=== PATIENT | female | born 1970 ===

== ENCOUNTER 2019-04-18 08:04 | Emergency (ER) | payer MEDICAID ==
--- NOTE | 2019-04-18 08:25 | Emergency Department Record ---
History of Present Illness - General Chief complaint: Edema Stated complaint: LEG SWELLING X 1 WEEK Time Seen by Provider: 04/18/19 08:13 Source: Patient Mode of Arrival: Ambulatory Limitations: No limitations - History of Present Illness Initial comments: The patient is here due to developing the perception of swelling to her arms and legs over the past week. She denies any new pain, fever, chills, SOB, nausea, vomiting, diarrhea, or any recent illnesses. The patient also denies any new medicines or new allergies. The patient does have a long hx of kidney stones and recurrent infections. She just finished a course of Macrobid and prior to that Keflex. She does have a mild feeling of dysuria but the patient states that has been coming and going for at least a year. There is a mild discomfort to both flanks but that is not an unusual issue for her and she does have a Urology appointment in 7 days. MD Complaint: Extremity swelling Onset/Timin -: Week(s) - Related Data Home Medications Medication Instructions Recorded Confirmed Last Taken Allopurinol 100 mg PO DAILY PRN 04/18/19 04/18/19 Unknown Tamsulosin HCl [Flomax] 0.4 mg PO DAILY PRN 04/18/19 04/18/19 Unknown Trazodone HCl 50 mg PO QHS 04/18/19 04/18/19 04/17/19 Previous Rx's Medication Instructions Recorded Sulfamethoxazole/Trimethoprim 1 tab PO BID #14 tab 04/18/19 [Bactrim Ds] Allergies Allergy/AdvReac Type Severity Reaction Status Date / Time codeine Allergy PT UNSURE Verified 04/18/19 08:18 OF REACTION Opioids - Morphine Analogues AdvReac HYPERSENSIT Verified 04/18/19 08:18 IVITY Travel Screening - Travel/Exposure Within Last 30 Days Have you traveled within the last 30 days?: No - Travel/Exposure Within Last Year Have you traveled outside the [place] in the last year?: No - Additonal Travel Details Have you been exposed to anyone with a communicable illness?: No Review of Systems Constitutional: Denies: Chills, Fever Eyes: Denies: Eye discharge ENT: Denies: Congestion Respiratory: Denies: Cough, Dyspnea Past Medical History - SOCIAL HISTORY Smoking Status: Never smoker Alcohol Use: Rare Drug Use: None - RESPIRATORY Hx Respiratory Disorders: No - CARDIOVASCULAR Hx Cardio Disorders: Yes Hx Hypotension: Yes Comment:: mitral valve prolaspe. - NEURO Hx Neuro Disorders: Yes Hx Dizziness: Yes - GI Hx GI Disorders: No - Hx Genitourinary Disorders: Yes Hx Kidney Stones: Yes - ENDOCRINE Hx Endocrine Disorders: No - MUSCULOSKELETAL Hx Musculoskeletal Disorders: Yes Hx Arthritis: Yes Comment:: scoliosois - PSYCH Hx Psych Problems: No - HEMATOLOGY/ONCOLOGY Hx Hematology/Oncology Disorders: No Family Medical History Any Significant Family History?: No Physical Exam - General General Appearance: Alert, Oriented x3, Cooperative, No acute distress (The patient appears very comfortable at this time and clearly in no obvious pain.) - Head Head exam: Atraumatic, Normocephalic, Normal inspection - Eye Eye exam: Normal appearance, PERRL - ENT Throat exam: Normal inspection. negative: Tonsillar erythema, Tonsillar exudate - Neck Neck exam: Normal inspection, Full ROM. negative: Lymphadenopathy, Tenderness - Respiratory Respiratory exam: Normal lung sounds bilaterally. negative: Respiratory distress - Cardiovascular Cardiovascular Exam: Regular rate, Normal rhythm, Normal heart sounds - GI/Abdominal GI/Abdominal exam: Soft, Normal bowel sounds. negative: Tenderness - Extremities Extremities exam: Normal inspection, Full ROM, Normal capillary refill, Other (The upper and lower extremities appear normal with no swelling or edema apprec iated.). negative: Calf tenderness, Joint swelling, Pedal edema, Tenderness - Neurological Neurological exam: Alert, Normal gait. negative: Abnormal gait, Motor sensory deficit - Psychiatric Psychiatric exam: negative: Anxious - Skin Skin exam: negative: Rash Course Vital Signs 04/18/19 08:14 Temperature 97.7 F Pulse Rate [ 68 Pulse Ox Probe] Respiratory 16 Rate Blood Pressure 128/66 [Left Arm] Pulse Ox 98 - Reevaluation(s) Reevaluation #1: The patient is resting comfortably and clearly is nontoxic in appearance. I did discuss the recurrent UTI with her and the need to keep the appointment with her Urologist. As for the perceived edema I did explain to the patient that I did not find any abnormality that could cause that. She is to see her PCP next week for recheck and further testing. 04/18/19 09:57 Medical Decision Making - Data Complexity MDM Data: Labs Ordered and/or Reviewed, X-Ray Ordered and/or Reviewed - Lab Data Result diagrams: 04/18/19 08:25 04/18/19 08:25 - Radiology Data Radiology results: Report reviewed (CT: Bilateral nephrocalcinosis and stones, Neg for ureter stone or hydro or obstruction.) Disposition Disposition: Discharge Clinical Impression: UTI (urinary tract infection) Qualifiers: Urinary tract infection type: site unspecified Hematuria presence: with hematuria Qualified Code(s): N39.0 - Urinary tract infection, site not specified Disposition: Home, Self-Care Condition: (2) Stable Instructions: Urinary Tract Infection in Women (ED) Additional Instructions: Please stay away from salt in your diet and take the Bactrim as directed. Please see your family doctor next week and also keep the appointment with your Urologist. Return to the ER for any worsening issues. Prescriptions: Sulfamethoxazole/Trimethoprim [Bactrim Ds] 1 tab PO BID #14 tab Forms: Patient Portal Access Time of Disposition: 09:56 Quality - Quality Measures Quality Measures: N/A - Blood Pressure Screening View Details: Yes Does Patient Have Any of the Following: No Blood Pressure Classification: Pre-Hypertensive BP Reading Systolic Measurement: 128 Diastolic Measurement: 66 Screening for High Blood Pressure: < Pre-Hypertensive BP, F/U Documented > [G8950] Pre-Hypertensive Follow-up Interventions: Referral to alternative/primary care provider.
[2019-04-18 08:45] LABS: ABSOLUTE NEUTROPHIL COUNT 4.47; BASO % 0.1 % (0-6); EOS % 4.2 % (0-6); GRAN % 62.6 % (47-80); HEMATOCRIT 39.8 % (35.0-47.0); HEMOGLOBIN 13.1 gm/dl (11.6-16.0); LYMPH % 23.7 % (16-45); MEAN CELL VOLUME 91.5 fl (81-97); MEAN CORPUSCULAR HEMOGLOBIN 30.1 pg (27-33); MEAN CORPUSCULAR HGB CONC 32.9 g/dl (32-36); MEAN PLATELET VOLUME 10.1 fl (7.4-10.4); MONO % 9.4 % (0-9); PLATELET COUNT 219 K/uL (130-400); RED BLOOD COUNT 4.35 M/uL (3.80-5.40); RED CELL DISTRIBUTION WIDTH 13.2 % (11.5-14.5); WHITE BLOOD COUNT W/O DIFF 7.1 K/uL (4.2-12.2)
[2019-04-18 08:55] LABS: BLOOD UREA NITROGEN 13 mg/dL (6-20); URINE APPEARANCE SL CLOUDY; URINE BILIRUBIN NEGATIVE (NEGATIVE); URINE COLOR YELLOW; URINE GLUCOSE (UA) NEGATIVE (NEGATIVE); URINE KETONE NEGATIVE (NEGATIVE)
[2019-04-18 08:56] LABS: CREATININE 0.9 mg/dL (0.5-0.9); EST GLOMERULAR FILTRATION RATE > 60 mL/min; URINE BLOOD MODERATE-NONHEMOLYZE (NEGATIVE); URINE LEUKOCYTE ESTERASE MODERATE (NEGATIVE); URINE NITRITE POSITIVE (NEGATIVE); URINE PROTEIN TRACE (NEGATIVE); URINE UROBILINOGEN 0.2 E.U./dL (0.20 - 1.00)
[2019-04-18 08:58] LABS: GLUCOSE,RANDOM 100 mg/dL (74-109)
[2019-04-18 08:59] LABS: URINE EPITHELIAL CELLS 0 - 2 (FEW)
[2019-04-18 09:00] LABS: URINE BACTERIA 4+
[2019-04-18 09:01] LABS: ALB/GLOB RATIO 1.3 (1.1-1.8); ALKALINE PHOSPHATASE 72 U/L (35-104); ALT/SGPT 19 U/L (<33); AST/SGOT 17 U/L (10.0-35.0); C-REACTIVE PROTEIN 0.46 mg/dL (<0.5)
[2019-04-18 09:12] LABS: THYROID STIMULATING HORMONE 4.06 uIU/mL (0.270-4.20)
[2019-04-18] MEDS ORDERED: ACETAMINOPHEN 325 MG TAB PO ONE (09:46)
--- NOTE | 2019-04-18 09:49 | CT SCAN REPORT ---
EXAMINATION: CT Abdomen and Pelvis without IV Contrast EXAM DATE: 04/18/2019 9:43 AM TECHNIQUE: Standard protocol CT imaging of the abdomen and pelvis was performed without intravenous c ontrast. INDICATION: flank pain COMPARISON: None ENCOUNTER: Not applicable CT ABDOMEN AND PELVIS FINDINGS: Lung Bases: Included extent of the lung bases are clear. Hepatobiliary: A 4.5 cm hypoattenuating mass is present within the posterior right lobe of the liver, indeterminate. Status post cholecystectomy. Pancreas: The pancreas is normal. Spleen: The spleen is not enlarged. Adrenals: The adrenal glands are normal. Kidneys, Ureters, & Bladder: Innumerable nonobstructing renal calculi are present bilaterally and the re is severe medullary nephrocalcinosis bilaterally. No obstructing urinary tract calculi are identif ied and there is no hydronephrosis. The urinary bladder is unremarkable. Gastrointestinal: The stomach and small bowel are normal with no obstruction or inflammation. The emeterio endix is normal. The large bowel is within normal limits. Reproductive Organs: An IUD is in place. Lymphatic System: There is no adenopathy within the abdomen or pelvis. Vasculature: Normal caliber abdominal aorta Peritoneum: No free fluid, free air, or inflammation Abdominal wall & Musculoskeletal: No suspicious bone lesions. Assessment of the solid organs, soft tissues, and vascular structures is overall limited on noncontra st imaging, IMPRESSION: 1. No obstructing urinary tract calculi or hydronephrosis. 2. 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 3. Status post cholecystectomy. Dictated by: Tomy Nguyen MD on 04/18/2019 9:46 AM. .
== END 2019-04-18 10:07 | disposition home or self-care (01) ==
LOC: ER 08:04
DX: N39.0 Urinary tract infection, site not specified (principal); R10.9 Unspecified abdominal pain; Z87.442 Personal history of urinary calculi
CPT/HCPCS: 74176; 80053; 81001; 84443; 84703; 85025; 85651; 86140; 99284

== ENCOUNTER 2019-05-15 08:27 | Emergency (ER) | payer MEDICAID ==
--- NOTE | 2019-05-15 08:42 | Emergency Department Record ---
History of Present Illness - General Chief complaint: Flank Pain Stated complaint: L FLANK PAIN/FEVER/CHILS Time Seen by Provider: 05/15/19 08:30 Source: Patient Mode of Arrival: Ambulatory Limitations: No limitations - History of Present Illness Initial comments: 48 yo female presents not feeling well since Sunday. She states she developed fevers and chills. The fevers have been subjective without any measurements. The symptoms seem to come and go. She has had some left flank pain with this as well. She was diagnosed with a UTI one month ago. She was seen in the ED. CT at that time demonstrated bilateral renal medullary nephrocalcinosis and innumerable nonobstructing renal calculi, no obstructing urinary tract calculi or hydronephrosis. SP cholecystectomy. No vomiting or diarrhea. She has nausea and feels dehydrated. She does not recall the name of her urologist for [facility] but she has seen Dr Rivers for general urology. She states she was told at a follow up at the end of March she is to have a hysterectomy due to so many UTIs in the past. Her PC is Dr Delacruz in [place]. Urine culture demonstrated E. coli from 04-18-2019. She report she has had 9 children. This is thought to be the cause of her bladder disfunction and UTIs. She became aware that she had renal stones in 2001. Her last lithotripsy was in 2010. No obstructing stones since then. The patient was treated with Bactrim DS on 04/18/2019. The E. coli was sensitive on the culture. Complaint: Other (left flank pain) -: Days(s) Location: Other (left side) Radiation: L flank Severity: Moderate Quality: Aching, Stabbing Consistency: Intermittent Improves with: None Worsens with: None Patient : No Associated Symptoms: Abdominal pain, Fever/chills, Loss of appetite - Related Data Allergies Allergy/AdvReac Type Severity Reaction Status Date / Time codeine Allergy PT UNSURE Verified 04/18/19 08:18 OF REACTION Opioids - Morphine Analogues AdvReac HYPERSENSIT Verified 04/18/19 08:18 IVITY Review of Systems Constitutional: Reports: Chills, Fever, Malaise, Weakness Eyes: Denies: Eye discharge ENT: Denies: Congestion, Throat pain Respiratory: Denies: Cough, Dyspnea Cardiovascular: Denies: Chest pain, Palpitations, Syncope Endocrine: Reports: Fatigue. Denies: Polydipsia, Polyuria Gastrointestinal: Reports: Abdominal pain, Nausea. Denies: Constipation, Diarrhea, Hematemesis, Hematochezia, Melena, Vomiting Genitourinary: Reports: Dysuria, Frequency. Denies: Hematuria, Incontinence, Retention, Urgency Musculoskeletal: Reports: Arthralgia, Back pain, Myalgia. Denies: Neck pain Skin: Denies: Bruising, Change in color, Rash Neurological: Denies: Headache, Numbness, Weakness Psychiatric: Denies: Anxiety Hematological/Lymphatic: Denies: Easy bleeding, Easy bruising Past Medical History - SOCIAL HISTORY Smoking Status: Never smoker Drug Use: None - RESPIRATORY Hx Respiratory Disorders: No - CARDIOVASCULAR Hx Cardio Disorders: Yes Hx Hypotension: Yes Comment:: mitral valve prolaspe. - NEURO Hx Neuro Disorders: Yes Hx Dizziness: Yes - GI Hx GI Disorders: No - Hx Genitourinary Disorders: Yes Hx Kidney Stones: Yes - ENDOCRINE Hx Endocrine Disorders: No - MUSCULOSKELETAL Hx Musculoskeletal Disorders: Yes Hx Arthritis: Yes Comment:: scoliosois - PSYCH Hx Psych Problems: No - HEMATOLOGY/ONCOLOGY Hx Hematology/Oncology Disorders: No Physical Exam - General General Appearance: Alert, Oriented x3, Cooperative, No acute distress Limitations: No limitations - Head Head exam: Atraumatic - Eye Eye exam: Normal appearance, PERRL. negative: Conjunctival injection, Scleral icterus - ENT ENT exam: Normal exam, Mucous membranes moist Ear exam: Normal external inspection Nasal Exam: Normal inspection Mouth exam: Normal external inspection Teeth exam: Normal inspection Throat exam: Normal inspection - Neck Neck exam: Normal inspection - Respiratory Respiratory exam: Normal lung sounds bilaterally. negative: Respiratory distress, Rhonchi, Stridor, Wheezes - Cardiovascular Cardiovascular Exam: Normal rhythm, Normal heart sounds, Tachycardia. negative: Regular rate - GI/Abdominal GI/Abdominal exam: Soft, Normal bowel sounds. negative: Distended, Guarding, Rebound, Rigid, Tenderness - Rectal Rectal exam: Deferred - exam: Deferred - Extremities Extremities exam: Normal inspection. negative: Calf tenderness, Pedal edema, Tenderness - Back Back exam: Reports: CVA tenderness (L), Full ROM, Paraspinal tenderness. Denies: CVA tenderness (R), Muscle spasm, Vertebral tenderness - Neurological Neurological exam: Alert, Oriented X3 - Psychiatric Psychiatric exam: Normal affect, Normal mood. negative: Agitated, Anxious - Skin Skin exam: Dry, Intact, Normal color, Warm Course - Reevaluation(s) Reevaluation #1: 05/15/19 08:49 US ordered given multiple prior CT scans US on 11-29-2018 Reviewed from [facility]: Medullary nephrocalcinosis. Minimal R hydronephrosis. 05/15/19 09:24 The labs were reviewed The WBC count is 16 The UA is consistent with UTI The HCG is negative The BMP is unremarkable Rocephin 1mg IV ordered 05/15/19 09:47 Influenza are negative 05/15/19 10:51 The US was reviewed. She has the nephrocacinosis with interval development of mild left sided hydronephrosis. Given her history of recurrent infections, stones, hydronephrosis I discussed she needs to be admitted. I called [facility] One [facility] for transfer. 05/15/19 11:07 Dr Schaefer of [facility] accepts the patient for transfer 05/15/19 11:25 [facility] office was called and a message was left for Dr Rivers informing her of transfer, bed # at [facility]. Medical Decision Making - Lab Data Result diagrams: 05/15/19 08:56 05/15/19 08:56 Disposition Disposition: Transfer Clinical Impression: Pyelonephritis UTI (urinary tract infection) Qualifiers: Urinary tract infection type: site unspecified Hematuria presence: without hematuria Qualified Code(s): N39.0 - Urinary tract infection, site not specified Hydronephrosis Qualifiers: Hydronephrosis type: unspecified Qualified Code(s): N13.30 - Unspecified hydronephrosis Disposition: Still a Patient at [facility] Decision to Admit Date: 05/15/19 Transfer To: [facility] Reason For Transfer: Pyelonephritis with renal stones Accepting Physician: Olive Time Discussed w/Accepting Physician: 10:50 Condition: (2) Stable Forms: Patient Portal Access Time of Disposition: 10:51 Quality - Quality Measures Quality Measures: N/A - Blood Pressure Screening Does Patient Have Any of the Following: No Blood Pressure Classification: Normal BP Reading Systolic Measurement: 96 Diastolic Measurement: 59 Screening for High Blood Pressure: < Normal BP, F/U Not Required > [G8783]
[2019-05-15] MEDS ORDERED: ONDANSETRON HCL IV 4 MG/2 ML VIAL IVP ONE (08:47)
[2019-05-15] MEDS ORDERED: ACETAMINOPHEN 1,000 MG/100 ML BTL IVPB ONE (08:47)
[2019-05-15] MEDS ORDERED: 0.9 % SODIUM CHLORIDE 1,000 ML BAG IV ONE ×2 (08:47→10:33)
[2019-05-15 09:05] LABS: ABSOLUTE NEUTROPHIL COUNT 14.18; HEMATOCRIT 40.9 % (35.0-47.0); HEMOGLOBIN 13.4 gm/dl (11.6-16.0); MEAN CELL VOLUME 90.9 fl (81-97); MEAN CORPUSCULAR HEMOGLOBIN 29.8 pg (27-33); MEAN CORPUSCULAR HGB CONC 32.8 g/dl (32-36); MEAN PLATELET VOLUME 9.9 fl (7.4-10.4); PLATELET COUNT 203 K/uL (130-400); RED CELL DISTRIBUTION WIDTH 13.1 % (11.5-14.5); WHITE BLOOD COUNT W/O DIFF 16.7 K/uL (4.2-12.2)
[2019-05-15 09:06] LABS: URINE APPEARANCE SL CLOUDY; URINE BILIRUBIN NEGATIVE (NEGATIVE); URINE BLOOD SMALL (NEGATIVE); URINE COLOR YELLOW; URINE GLUCOSE (UA) NEGATIVE (NEGATIVE); URINE KETONE NEGATIVE (NEGATIVE); URINE LEUKOCYTE ESTERASE MODERATE (NEGATIVE); URINE NITRITE POSITIVE (NEGATIVE); URINE PROTEIN NEGATIVE (NEGATIVE); URINE UROBILINOGEN 0.2 E.U./dL (0.20 - 1.00)
[2019-05-15 09:14] LABS: HCG,QUALITATIVE URINE NEGATIVE (NEGATIVE); URINE BACTERIA 4+; URINE EPITHELIAL CELLS RARE (FEW); URINE WBC 36 - 50 (0-2/hpf)
[2019-05-15 09:17] LABS: PLATELET ESTIMATE NORMAL (NORMAL)
[2019-05-15] MEDS ORDERED: CEFTRIAXONE 1GM/50ML BAG 1 GM/50 ML BAG IVPB ONE (09:17)
[2019-05-15 09:19] LABS: BLOOD UREA NITROGEN 10 mg/dL (6-20); CREATININE 0.8 mg/dL (0.5-0.9); EST GLOMERULAR FILTRATION RATE > 60 mL/min
[2019-05-15 09:20] LABS: TOTAL PROTEIN 7.7 g/dL (6.6-8.7)
[2019-05-15 09:21] LABS: INFLUENZA A NEGATIVE (NEGATIVE); INFLUENZA B NEGATIVE (NEGATIVE)
[2019-05-15 09:22] LABS: GLUCOSE,RANDOM 113 mg/dL (74-109)
[2019-05-15 09:25] LABS: ALB/GLOB RATIO 1.1 (1.1-1.8); ALKALINE PHOSPHATASE 74 U/L (35-104); ALT/SGPT 21 U/L (<33); AST/SGOT 20 U/L (10.0-35.0)
[2019-05-15] MEDS ORDERED: IBUPROFEN 600 MG TABLET PO ONE (09:49)
--- NOTE | 2019-05-15 10:40 | ULTRASOUND REPORT ---
EXAMINATION: RENAL EXAM DATE: 05/15/2019 10:10 AM TECHNIQUE: Sonographic images of the kidneys and bladder were obtained. INDICATION: Left flank pain COMPARISON: CT abdomen and pelvis without contrast from 04/18/2019 ENCOUNTER: Initial Findings: The right kidney measures 10 x 5 x 4 cm, and the left kidney measures 13 x 6 x 5 cm, both w ithin normal limits for size. The renal pyramids are echogenic, consistent with the diffuse pyramidal calcifications seen in both kidneys on the prior CT. There is mild left hydronephrosis, which is not evident previously. The urinary bladder is poorly distended, but unremarkable morphologically. Ureteral jets are not seen however. IMPRESSION: 1. Findings are consistent with medullary nephrocalcinosis, as seen previously, with interval mild le ft hydronephrosis, suspicious for obstructive uropathy in the appropriate clinical context. The [facility] significant findings protocol was initiated at 05/15/2019 10:37 AM. Dictated by: Edgardo Jean Baptiste MD on 05/15/2019 10:31 AM. .
== END 2019-05-15 11:40 | disposition still patient (30) ==
LOC: ER 08:27
DX: N13.6 Pyonephrosis (principal); E83.59 Other disorders of calcium metabolism; N29 Other disorders of kidney and ureter in diseases classified elsewhere; R11.0 Nausea; R50.81 Fever presenting with conditions classified elsewhere; R10.32 Left lower quadrant pain; R42 Dizziness and giddiness; Z87.442 Personal history of urinary calculi
CPT/HCPCS: 76775; 80053; 81001; 81025; 85027; 87400; 96361; 96365; 96366; 96375; 99285; J0696; J2405; J7030